=== PATIENT | female | born 1990 | race African-American/Black ===

== ENCOUNTER 2017-08-08 18:37 | Emergency (ER) | payer OTHER ==
[~2017-08-08] VITALS: Ht 167.6 cm; Wt 63.5 kg
[2017-08-08 18:53] VITALS: BP 134/75
== END 2017-08-08 19:27 | disposition home or self-care (01) ==
LOC: ER 18:48
DX: J06.9 Acute upper respiratory infection, unspecified (principal); F90.9 Attention-deficit hyperactivity disorder, unspecified type
CPT/HCPCS: 99283; A4606; Z7610